=== PATIENT | female | born 1945 | race Caucasian/White ===

== ENCOUNTER → 2024-08-22 10:47 | Outpatient (REF) | payer MEDICARE, BC, SELFPAY ==
[2024-08-22 12:25] LABS: ALT (SGPT) 49 U/L (0-35); AST (SGOT) 53 U/L (14-36); Albumin 4.2 g/dl (3.5-5.0); Alkaline Phosphatase 86 U/L (38-126); Blood Urea Nitrogen 19 mg/dl (7-17); Calcium 9.9 mg/dl (8.4-10.2); Carbon Dioxide 27 mmol/L (22-30); Chloride 103 mmol/L (98-107); Glucose 99 mg/dl (70-99); HDL Cholesterol 42 mg/dl; LDL Cholesterol, Calculated 111 mg/dl; Potassium 4.8 mmol/L (3.5-5.1); Sodium 139 mmol/L (135-145); Total Bilirubin 0.8 mg/dl (0.2-1.3); Total Cholesterol 178 mg/dl (50-199); Total Protein 6.6 g/dl (6.3-8.2); Triglyceride 129 mg/dl (10-149); Very Low Density Lipoprotein 25 mg/dl (0-30); eGFR > 60.00
[2024-08-22 12:26] LABS: % Basophils 1.3 % (0-2); % Eosinophils 2.7 % (0-6); % Immature Granulocytes 0.3 % (0-0.5); % Lymphocytes 30.2 % (20.5-51.1); % Monocytes 10.1 % (1.7-9.3); % Neutrophils 55.4 % (42.2-75.2); Absolute Basophils 0.1 10^3/uL (0-0.2); Absolute Eosinophils 0.2 10^3/uL (0-0.7); Absolute Lymphocytes 2.1 10^3/uL (1.2-3.4); Absolute Monocytes 0.7 10^3/uL (0.1-0.6); Absolute Neutrophils 3.9 10^3/uL (1.4-6.5); Hematocrit 39.2 % (37.0-47.0); Hemoglobin 12.7 g/dL (12.0-16.0); Mean Corp Hgb Conc. 32.4 g/dL (33.0-37.0); Mean Corpuscular Volume 89.5 fL (81.0-99.0); Mean Platelet Volume 9.9 fL (7.4-10.4); Nucleated Red Blood Cells % 0 %; Platelet Count 297 10^3/uL (130-400); Red Blood Cell Count 4.38 10^6/uL (4.20-5.40); White Blood Cell Count 7.1 10^3/uL (4.8-10.8)
[2024-08-22 16:22] LABS: Vitamin D, 25-OH*** 32.5 ng/mL (30-80)
[2024-08-22 16:55] LABS: Vitamin B12 730 pg/ml (239-931)
[2024-08-23 10:09] LABS: Glycohemoglobin (HgbA1c) 5.4 % (4.0-5.6)
== END ==
LOC: OLABMERCHI 10:47
DX: E78.5 Hyperlipidemia, unspecified (principal); I10 Essential (primary) hypertension; D51.8 Other vitamin B12 deficiency anemias; E55.9 Vitamin D deficiency, unspecified; R73.03 Prediabetes; Z13.1 Encounter for screening for diabetes mellitus
CPT/HCPCS: 36415; 80053; 80061; 82306; 82607; 83036; 85025

== ENCOUNTER → 2025-01-02 11:58 | Outpatient (REF) | payer MEDICARE, BC, SELFPAY ==
[2025-01-02 14:01] LABS: Hematocrit 42.5 % (37.0-47.0); Hemoglobin 13.5 g/dL (12.0-16.0); Mean Corp Hgb Conc. 31.8 g/dL (33.0-37.0); Mean Corpuscular Volume 93.0 fL (81.0-99.0); Platelet Count 279 10^3/uL (130-400); Red Cell Dist. Width 15.3 % (11.5-14.5)
[2025-01-02 14:04] LABS: ALT (SGPT) 31 U/L (0-35); AST (SGOT) 39 U/L (14-36); Albumin 4.4 g/dl (3.5-5.0); Alkaline Phosphatase 99 U/L (38-126); Blood Urea Nitrogen 21 mg/dl (7-17); Calcium 9.5 mg/dl (8.4-10.2); Carbon Dioxide 30 mmol/L (22-30); Chloride 104 mmol/L (98-107); Glucose 93 mg/dl (70-99); Potassium 4.7 mmol/L (3.5-5.1); Sodium 139 mmol/L (135-145); Total Protein 7.5 g/dl (6.3-8.2); eGFR > 60.00
== END ==
LOC: OLABMERCHI 11:58
PROVIDERS: ATTENDING PHYSICIAN Hospitalist
DX: R74.01 Elevation of levels of liver transaminase levels (principal)
CPT/HCPCS: 36415; 80053; 85027

== ENCOUNTER → 2025-03-24 10:43 | Outpatient (REF) | payer MEDICARE, BC, SELFPAY | LOC: RAD 10:43 | PROVIDERS: ATTENDING PHYSICIAN Internal Medicine; FAMILY PHYSICIAN Hospitalist | DX: M25.50 Pain in unspecified joint (principal); M25.60 Stiffness of unspecified joint, not elsewhere classified | CPT/HCPCS: 73130 ==